=== PATIENT | male | born 2005 | race Two or more races ===

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

== ENCOUNTER 2024-02-04 09:12 | Outpatient (AMB) | payer OTHER, SELFPAY ==
--- NOTE | 2024-02-04 09:16 | A.OFFVIS_ITS ---
Vital Signs 02/04/24 09:24 Height 6 ft 3 in Weight 177 lb BMI 22.1 BP 136/76 Blood Pressure Location Rt brachial Position Sitting Pulse 52 Intake Visit Reasons: cellulitis of abdominal wall Intake Note: Patient referred after being seen at [facility] on 01-26-24 for cellulitis on abdomen. Patient c/o: mild improvement with Bactrim and Cephalexin course. Reports missing some abx doses. Bank Advisor Required: No Accompanied by: Self / Same As Patient Allergies No Known Allergies Allergy (Verified 02/04/24 09:21) HPI Comments Details: Patient presents with a partially six-month history of symptomatic swelling/bulge of his umbilicus. In the meantime, he is tolerating regular diet. Having normal bowel habits. He does occasionally have strenuous activities and working out. No other GI issues or complaints. Chart was reviewed and patient evaluate [facility] Surgical History (Updated 02/04/24 @ 09:45 by Zachary Kraus MD) Intracranial shunt Social History (Updated 02/04/24 @ 09:22 by ROBERTO Jiménez) Alcohol intake: never Patient Tobacco Use Status: Never used Tobacco Physical Exam Vital Signs: Last Vital Signs Pulse 52 02/04/24 09:24 BP 136/76 02/04/24 09:24 BMI result Body Mass Index 22.1 Const Other: Tall slender well-developed male Chest Other: Chest breath sounds bilaterally, HS 1 in 2 GI Other: Patient was examined both supine and standing with Valsalva. Bilateral groin exam negative. Genitalia within normal limits. Abdomen is scaphoid, soft, benign. Patient has a left lower quadrant transverse incision from a prior placed TOWEL FOLDER shunt. Patient was proximally 2 cm incarcerated/irreducible umbilical hernia. Assessment & Plan Assessment & Plan (1) Incarcerated umbilical hernia: Code(s): K42.0 - Umbilical hernia with obstruction, without gangrene Category: Surgical Plan Risks, benefits, alternatives of open repair of percussion umbilical hernia with mesh were reviewed with the patient and included but not limited to bleeding, infection, recurrence, numbness, pain, scarring, bowel injury and the patient wishes to proceed. All questions answered. Arrangements were made for this. Coding Level of Care Code New Pt Level 5 (98343) Diagnoses Incarcerated umbilical hernia K42.0
[2024-02-04 09:24] VITALS: BP 136/76; PULSE 52; BMI 22.1
== END 2024-02-04 09:40 | disposition home or self-care (01) ==
PROVIDERS: Visit Provider Surgery
DX: K42.0 Umbilical hernia with obstruction, without gangrene (principal)
CPT/HCPCS: 99204

== ENCOUNTER → 2024-02-04 09:12 | Outpatient (BNVA) | payer OTHER, SELFPAY | PROVIDERS: Visit Provider Surgery ==

== ENCOUNTER 2024-03-12 05:58 | Day surgery (SDC) | payer OTHER, SELFPAY ==
[2024-03-10 06:49] VITALS: BMI 22.1
--- NOTE | 2024-03-11 07:57 | MHC.SHP ---
Pre-Procedural Eval Section A - 24 Hr Update-Section A only Date of Service: 03/12/24 The patient is an INPATIENT: No Changes since office visit: No Cold of Flu in the past 2 weeks, No New Medical Problems, No Changes in Medication and No Patient answered all questions Section B - Complete if H&P > 30 days Chief Complaint: Umbilical hernia with obstruction, without gangren Allergies: Allergies Allergy/AdvReac Type Severity Reaction Status Date / Time No Known Allergies Allergy Verified 02/04/24 09:21 Plan I have reviewed the history and physical and performed a pertinent physical examination on my patient. No changes have occurred unless specified. Time Spent With Patient Time: Total time managing care of this patient today ____ minutes.
--- NOTE | 2024-03-11 09:14 | P.CONAN_ITS ---
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 Follows with [facility]urg ~ [id number]. Stable without issue since placement. Last visit 10/2020. Planned f/u 02/2024. Recent augmentin course for URI symptoms. Pt states asymptomtic now. [facility] Active Problems Active Problems: All Active Problems Incarcerated umbilical hernia (Acute) Surgical History Surgical History Intracranial shunt Social History Social History (Updated 02/04/24 @ 09:22 by ROBERTO Jiménez) Alcohol intake: never Patient Tobacco Use Status: Never used Tobacco Are you DNR?: No Advance Directives: No Advance Directives Information Provided: Yes Nutrition Risks: No Nutritional Risk Meds Allergies Allergy/AdvReac Type Severity Reaction Status Date / Time No Known Allergies Allergy Verified 03/12/24 06:37 Home Medications ?Medication ?Instructions ?Recorded ?Confirmed ?Last Taken ?Type amoxicillin 875 mg-potassium 2 tab PO BID 03/10/24 03/10/24 03/11/24 07:00 History clavulanate 125 mg tablet Exam Height,Weight and Vital Signs: Height 6 ft 3 in Weight 80.286 kg Assessment and Plan Assessment Anesthesia Assessment: Chart Reviewed Documented by User: Doug Zheng MD 03/12/24 07:27 [facility] Family History Family history of problems with anesthesia: No Surgical History Surgical History Intracranial shunt History of Problems with Anesthesia: No Social History Social History (Updated 02/04/24 @ 09:22 by ROBERTO Jiménez) Alcohol intake: never Patient Tobacco Use Status: Never used Tobacco Are you DNR?: No Advance Directives: No Advance Directives Information Provided: Yes Nutrition Risks: No Nutritional Risk Meds Allergies Allergy/AdvReac Type Severity Reaction Status Date / Time No Known Allergies Allergy Verified 03/12/24 06:37 Home Medications ?Medication ?Instructions ?Recorded ?Confirmed ?Last Taken ?Type amoxicillin 875 mg-potassium 2 tab PO BID 03/10/24 03/10/24 03/11/24 07:00 History clavulanate 125 mg tablet Exam Airway Mallampati Class: I TM Dist: >3cm Neck ROM: Full Loose/Missing/Broken Teeth: No Heart: rrr Lungs: cta Assessment and Plan Assessment Anesthesia Assessment: Anesthesia Plan Discussed Final Anesthetic Review Family History of Problems with Anesthesia: No History of Problems with Anesthesia: No NPO: Yes ASA Class: I Final Preanesthetic Review: No Changes in Pt Med Stat, Meds/Allgs Chart Reviewed, Consent Obtained/Reviewed and Anes Risks/Benef Reviewed Patient Risk: Low Procedure Risk: Low Anesthetic Plan Anesthetic Plan: GA Disposition: Standard PACU
[2024-03-12] VITALS (11 sets, daily range): BP systolic 90–127; BP diastolic 42–71; PULSE 55–66; RESP 14–19; TEMP 36.4–36.6; O2SAT 95–99; BMI 22.1
[2024-03-12] MEDS: Lactated Ringers 1,000 ML 100 ML IVCONT (06:27)
--- NOTE | 2024-03-12 08:04 | W.PM.OPN ---
Operative Note Operative Note Date of Service: 03/12/24 Narrative: Preoperative diagnosis: [] Incarcerated umbilical hernia Postop diagnosis: [] The same Procedure [] open umbilical herniorrhaphy with Bard mesh Surgeon: [] Efra Single Stayer Operator: [] [place]erva Type of Anesthesia: [] General Indication for surgery: [] ap Proximally 2 cm incarcerated umbilical hernia with omental contents Findings: [] Patient brought to the operating room, placed on operative table supine position, after an adequate level of general anesthesia was induced, the patient's abdomen was prepped and draped in usual sterile fashion. Using a small supraumbilical curvilinear incision, this carried down through skin, subcutaneous tissue, down to a hernia sac which was dissected off the posterior aspect of the umbilicus and then dissected down to the fascia. Sac was opened were incarcerated omental contents were reduced. Sac was amputated. Fascia margins were circumferentially cleared. A Bard mesh was placed in this defect and the superficial layer of the mesh was circumferentially sutured to the surrounding fascia using interrupted 0 Ethibond suture. At completion of procedure, mesh was in good position with no tension or gaps. Wound was irrigated, and secured hemostasis. It was closed in the following manner; posterior aspect of the umbilicus was tacked to the wound floor using interrupted 3-0 Vicryl suture. Skin was closed using interrupted inverted dermal 3-0 Vicryl sutures followed by Steri-Strips and sterile dressings. Wound was infiltrated 0.5% Marcaine at completion. Sponge, needle, and instrument counts were reported correct. Patient tolerated the procedure well and emerged from anesthesia stable condition. EBL minimal
[2024-03-12] MEDS: HYDROmorphone HCl 0.5 MG/0.5 ML SYRINGE IVPUSH ×2 (08:27→08:32)
[2024-03-12] MEDS: Ketorolac Tromethamine 30 MG/ML VIAL IVPUSH (08:46)
== END 2024-03-12 10:01 | disposition home or self-care (01) ==
PROVIDERS: Visit Provider Surgery
PROC: (CPT 49592; principal; 2024-03-12 07:30)
DX: K42.0 Umbilical hernia with obstruction, without gangrene (principal)
CPT/HCPCS: 49592; C1781; J0690; J1170; J1885; J2250; J2704; J2795; J3010

== ENCOUNTER → 2024-03-12 05:58 | Outpatient (BNV) | payer OTHER, SELFPAY | PROVIDERS: Visit Provider Surgery | DX: K42.0 Umbilical hernia with obstruction, without gangrene (principal) | CPT/HCPCS: 49592 ==

== ENCOUNTER 2024-03-23 10:07 | Outpatient (AMB) | payer OTHER, SELFPAY ==
--- NOTE | 2024-03-23 10:09 | MHC.OFFVIS ---
Intake Visit Reasons: S/P incarcerated umbilical hernia w/mesh Intake Note: Patient here s/p incarcerated umbilical hernia w/mesh. Reports incisions healing well. Patient c/o: denies oozing, pain. No longer taking rx pain meds. SX: 03-12-2024. Insurance Claim Representative Required: No Accompanied by: Self / Same As Patient Allergies No Known Allergies Allergy (Verified 03/23/24 10:10) HPI Comments Details: Patient presents for follow-up. He has no wound issues or complaints. He has tolerating a diet. He is having regular bowel habits. He is increasing his activity level [facility] Surgical History (Updated 03/19/24 @ 13:55 by ROBERTO Jiménez) Incarcerated umbilical hernia (03/12/24) Intracranial shunt Social History (Updated 02/04/24 @ 09:22 by ROBERTO Jiménez) Alcohol intake: never Patient Tobacco Use Status: Never used Tobacco Physical Exam GI Other: Abdomen is soft. Wound clean dry and intact healing well Assessment & Plan Assessment & Plan (1) Postop check: Code(s): Z09 - Encounter for follow-up examination after completed treatment for conditions other than malignant neoplasm Category: Medical Plan Patient has been given local instructions including avoiding strenuous activities for next 4-6 weeks time and will otherwise follow-up p.r.n.. All questions answered Medications: Discontinued hydrocodone-acetaminophen 5-325 mg Partial Fill upon patient request. Discontinued Reason: Patient no longer taking 1 tab PO Q4-6H PRN 30 tabs 0RF pain Coding Level of Care Code Global (20346) Diagnoses Postop check Z09
== END 2024-03-23 10:17 | disposition home or self-care (01) ==
PROVIDERS: Visit Provider Surgery
DX: Z09 Encounter for follow-up examination after completed treatment for conditions other than malignant neoplasm (principal)
CPT/HCPCS: 99212

== ENCOUNTER → 2024-03-23 10:07 | Outpatient (BNVA) | payer OTHER, SELFPAY | PROVIDERS: Visit Provider Surgery ==

== ENCOUNTER → 2024-10-26 13:28 | Outpatient (BNVA) | payer OTHER, SELFPAY | PROVIDERS: PCP Nurse Practitioner Family; Visit Provider Surgery ==

== ENCOUNTER 2024-11-10 13:08 | Outpatient (AMB) | payer OTHER, SELFPAY ==
--- NOTE | 2024-11-10 13:11 | A.OFFVIS_ITS ---
Intake Visit Reasons: incision is draining Intake Note: Patient here s/p right lateral aspect of the prior umbilical hernia repair incision has a small granulating area. Patient c/o: oozing, redness, tender to touch. Used Bacitracin onitment. Clinical Case Manager Required: No Accompanied by: Self / Same As Patient Allergies No Known Allergies Allergy (Verified 11/10/24 13:11) HPI Comments Details: Patient presents for evaluation because he is draining from his umbilicus. He states that he is pulling out clumps of hair from his umbilical wound. He is otherwise tolerating a diet. Having regular bowel habits. No other abdominal issues or complaints [facility] Surgical History (Updated 11/10/24 @ 13:25 by Zachary Kraus MD) Incarcerated umbilical hernia (03/12/24) Intracranial shunt Social History (Updated 02/04/24 @ 09:22 by ROBERTO Jiménez) Alcohol intake: never Patient Tobacco Use Status: Never used Tobacco Physical Exam GI Other: Abdomen is soft, scaphoid, benign. Right lateral aspect of the umbilicus has a draining area which was probed with a tweezer and literally clumps of hair were retrieved. No evidence of any suture material was found. This is consistent with a pilonidal cyst type finding. No evidence of any cellulitis or abscess or purulence. Assessment & Plan Assessment & Plan (1) Draining postoperative wound: Code(s): T81.89XA - Other complications of procedures, not elsewhere classified, initial encounter Category: Surgical Plan At present, patient is been recommended to shave the periumbilical area and bacitracin and a dressing applied to the wound. He will see me in roughly 1 week's time. Further interventions studies will be directed by the patient's clinical course. All questions answered. Coding Level of Care Code Global (98776) Diagnoses Draining postoperative wound T81.89XA
== END 2024-11-10 13:22 | disposition home or self-care (01) ==
PROVIDERS: PCP Nurse Practitioner Family; Visit Provider Surgery
DX: Z48.817 Encounter for surgical aftercare following surgery on the skin and subcutaneous tissue (principal)
CPT/HCPCS: 99213

== ENCOUNTER → 2024-11-10 13:08 | Outpatient (BNVA) | payer OTHER, SELFPAY | PROVIDERS: PCP Nurse Practitioner Family; Visit Provider Surgery ==

== ENCOUNTER 2025-04-05 14:30 | Outpatient (AMB) | payer OTHER, SELFPAY ==
--- NOTE | 2025-04-05 14:40 | MHC.OFFVIS ---
Vital Signs 04/05/25 14:50 Height 6 ft 4 in Weight 175 lb 6 oz BMI 21.3 BP 128/73 Blood Pressure Location Lt brachial Position Sitting Pulse 72 Intake Visit Reasons: hair in stitches Intake Note: Patient of Dr Kraus is seen in office for hair in stitches post umbilical hernia repair. Pt c/o: had a hernia repair and since has been noticing hair coming out of the umbilical area, per pt was told by Dr Kraus it was dissolvable sutures rejected by body, however pt states there is still hair in the area L.OV:11/10/24 Handtools Repairer Required: No Accompanied by: Self / Same As Patient Allergies No Known Allergies Allergy (Verified 04/05/25 14:50) HPI HPI hair in stitches: Details: He had undergone repair of an umbilical hernia with Dr. Kraus last February,. He says that almost once a month, he would notice here coming out of his incision. He says that there may be some enter drainage also periodically. He denies any pain. He denies any signs of recurrence. [facility] Surgical History Incarcerated umbilical hernia (03/12/24) Intracranial shunt Social History Alcohol intake: never Patient Tobacco Use Status: Never used Tobacco Review of Systems Const Denies chills and Denies fever(s) Card Denies chest pain, Denies dyspnea and Denies dyspnea on exertion Resp Denies cough, Denies dyspnea and Denies dyspnea on exertion GI Denies hematochezia and Denies change in bowel habits Denies hematuria and Denies difficulty urinating Musc Denies back pain and Denies limited range of motion Neuro Denies focal weakness and Denies convulsions Psych Denies depression and Denies mood swings Physical Exam Const General: comfortable and no acute distress Resp Effort & Inspection: normal respiratory effort Cardio Rate: regular rate GI Other: Umbilical hernia incision is well healed, not infected, no induration, no open areas, no drainage, no redness Palpation (GI): Soft to palpation, not firm and nontender Assessment & Plan Assessment & Plan (1) Draining postoperative wound: Code(s): T81.89XA - Other complications of procedures, not elsewhere classified, initial encounter Category: Surgical Plan: He had umbilical hernia repair with mesh last February, with Dr. Kraus. He says that once a month or so he would notice ?here coming out? of the incision. He would also see some scan the drainage Current exam does not reveal any induration or any hypergranulation tissue. I did not see any drainage. He is very hairy around the area. I told him to see if regular shaving with a an electric shaver can help he is very hairy on the area. I also told him that he should come back to the office when the incision seems to be pushing out hair so that I can see exactly what is going on with the incision. He is comfortable with the plan. Currently, there is no evidence of any abscess or any need for any surgical intervention Coding Level of Care Code Est Pt Level 2 (18805) Diagnoses Draining postoperative wound T81.89XA
[2025-04-05 14:50] VITALS: BP 128/73; PULSE 72; BMI 21.3
== END 2025-04-05 15:28 | disposition home or self-care (01) ==
LOC: HO.HGS 14:31
PROVIDERS: PCP Nurse Practitioner Family; Visit Provider Surgery
DX: T81.89XA Other complications of procedures, not elsewhere classified, initial encounter (principal)
CPT/HCPCS: 99212

== ENCOUNTER → 2025-04-05 14:30 | Outpatient (BNVA) | payer OTHER, SELFPAY | PROVIDERS: PCP Nurse Practitioner Family; Visit Provider Surgery | DX: T81.9XXA Unspecified complication of procedure, initial encounter (principal); K42.9 Umbilical hernia without obstruction or gangrene | CPT/HCPCS: 99212 ==